=== PATIENT | male | born 1995 | race Caucasian/White ===

== ENCOUNTER 2023-01-16 21:48 | Emergency (ER) | payer OTHER ==
[2023-01-16] MEDS ORDERED: Sodium Chloride 0.9% 10 ML Syringe FLUSH PRN (22:25)
[2023-01-16] MEDS ORDERED: Dexamethasone 4 MG/ML SDV IVPUSH ONE (22:25)
[2023-01-16] MEDS ORDERED: Ketorolac 30 MG/ML SDV IVPUSH ONE (22:25)
== END 2023-01-16 23:56 | disposition home or self-care (01) ==
LOC: DL.ED 21:48
DX: G89.29 Other chronic pain (principal); M54.50 Low back pain, unspecified
CPT/HCPCS: 96374; 96375; 99283; J1100; J1885; J3490